=== PATIENT | female | born 1955 | race Caucasian/White ===

== ENCOUNTER → 2017-06-07 | Outpatient (CLI) | payer BC, OTHER ==
[~2017-06-07] MED LIST: LEVO75TA3 PO; LEVO88TA21 PO; OMEP20CA5 PO; TYLE3 PO
[2017-06-07 13:53] LABS: AUTOMATED NEUTROPHIL # 4.1 TH/MM3 (1.8-7.7); BASOPHIL % 0.7 % (0.0-2.0); EOSINOPHIL # 0.1 TH/MM3 (0-0.4); EOSINOPHIL % 1.5 % (0.0-4.0); HEMATOCRIT 40.3 % (35.0-46.0); HEMOGLOBIN 13.8 GM/DL (11.6-15.3); LYMPH % 28.6 % (9.0-44.0); LYMPHOCYTE # 1.9 TH/MM3 (1.0-4.8); MEAN CELL VOLUME 88.7 FL (80.0-100.0); MEAN CORPUSCULAR HEMOGLOBIN 30.3 PG (27.0-34.0); MEAN CORPUSCULAR HGB CONC 34.2 % (32.0-36.0); MEAN PLATELET VOLUME 7.9 FL (7.0-11.0); MONOCYTE # 0.5 TH/MM3 (0-0.9); NEUT % 61.2 % (16.0-70.0); PLATELET COUNT 292 TH/MM3 (150-450); RED BLOOD COUNT 4.55 MIL/MM3 (4.00-5.30); RED CELL DISTRIBUTION WIDTH 13.5 % (11.6-17.2); WHITE BLOOD COUNT 6.7 TH/MM3 (4.0-11.0)
[2017-06-07 14:09] LABS: BILIRUBIN, URINE NEG (NEG); BLOOD, URINE NEG (NEG); GLUCOSE,URINE NEG (NEG); KETONE, URINE NEG (NEG); MUCUS URINE FEW /lpf (OCC); NITRITE,URINE NEG (NEG); SQUAMOUS EPITHELIAL CELL URINE 1 /hpf (0-5); URINE COLOR YELLOW (YELLW/STRAW); URINE LEUKOCYTE ESTERASE SMALL (NEG)
--- NOTE | 2017-06-08 22:12 | EKG ---
Date Performed: 06/07/2017 Time Performed: 13:26:12 PTAGE: 61 years EKG: Sinus bradycardia Poor R wave progression - probable normal variant Inferior and anterior T wave changes are nonspecific Low QRS voltages in precordial leads Borderline ECG NO PREVIOUS TRACING DOCTOR: Omer Hunter Interpretating Date/Time 06/08/2017 22:11:00
== END ==
LOC: CPRE 12:51
PROVIDERS: ATTEND Obstetrics & Gynecology
DX: Z01.812 Encounter for preprocedural laboratory examination (principal); Z01.810 Encounter for preprocedural cardiovascular examination; N95.0 Postmenopausal bleeding; N85.00 Endometrial hyperplasia, unspecified; N84.1 Polyp of cervix uteri
CPT/HCPCS: 36415; 81001; 85025; 93005

== ENCOUNTER → 2017-06-09 | Day surgery (SDC) | payer BC, OTHER ==
--- NOTE | 2017-06-08 11:24 | MH ---
cc: JESI SUE DATE OF ADMISSION 06/09/2017 ADMITTING DIAGNOSIS Postmenopausal bleeding. HISTORY OF PRESENT ILLNESS The patient is a 61-year-old white female, para 0. She had initially seen her primary doctor and nurse practitioner in November with atypical pelvic discomfort that resolved. She had a Pap smear in February and had some bleeding with the Pap smear. A vaginal ultrasound showed fibroids with endometrial thickening of 12 mm on 04/14/2017. She was referred to me on 04/28/2017 and is now admitted for surgical evaluation. PAST MEDICAL HISTORY PREVIOUS SURGERY 1. T&A age 30. 2. Laparoscopic cholecystectomy 1974. 3. Toe surgery 1991. MEDICATIONS Levothyroxine. ALLERGIES 1. PENICILLIN. 2. LEVAQUIN. TRANSFUSIONS None. OB HISTORY None. SOCIAL HISTORY She works for the [employer]. 27 years. Alcohol occasional. Tobacco none. Drugs none. FAMILY HISTORY Noncontributory. PHYSICAL EXAMINATION GENERAL: A well-nourished, well-developed white female. VITAL SIGNS: Stable. HEENT: Normal. CHEST: Clear. HEART: Regular rate. BREASTS: Symmetrical. ABDOMEN: Benign. PELVIC: Normal external genitalia and BUS. Vagina is normal. Cervix is normal with large polyps. Uterus is normal size and shape. Adnexa nonpalpable. ASSESSMENT Postmenopausal bleeding with polyps, fibroids and endometrial thickening. PLAN She is now admitted for polypectomy, hysteroscopy and D&C. While in the office I explained the procedures, the risks, benefits and complications including infection, injury, bleeding and possible need for additional procedures explained and accepted. The patient elected to proceed. MD HANNA Matthew/JOSE A /10:46 AM /10:55 AM
[~2017-06-09] VITALS: Ht 172.7 cm; Wt 82.2 kg
[~2017-06-09] MED LIST changes: +ACETAMINOPHEN 1000 MG/100 ML 100 ML IV SCH; +APREPITANT 40 MG CAP ONE; +CHLORHEXIDINE GLUCONATE 2 % 1 PACK (2 CLOTHS) TOPICAL PRN; +CLINDAMYCIN 600 MG/NS PREMIX 50 ML IV SCH; +DEXAMETHASONE SOD PHOS 4 MG/ML VIAL IV ONE; +DO NOT ADM ANY ANTICOAGULANT DRUGS PRN; +KETOROLAC TROMETHAMINE 30 MG/ML (IVP) VIAL IV PUSH ONE; +LACTATED RINGER'S 1000 ML IV PRN; -LEVO88TA21 PO; +LIDOCAINE HCL 1% PF 5 ML SYRINGE OTHER ONE; +METOCLOPRAMIDE HCL 10 MG/2 ML VIAL IV PRN; +METOPROLOL TARTRATE 25 MG TAB PO PRN; -OMEP20CA5 PO; +ONDANSETRON HCL 4 MG/2 ML VIAL IV PUSH ONE; +POVIDONE IODINE 5% (ANTISEPSIS KIT) 4 APPLICATIONS EACH NARE PRN; +PROPOFOL 200 MG/20 ML AMP IV ONE; +SODIUM CHLORID 0.9% 500 ML IV PRN; -TYLE3 PO
[2017-06-09 09:13] VITALS: BP 116/62; PULSE 59; RESP 16; TEMP 98.1; O2SAT 100
--- NOTE | 2017-06-09 11:30 | MP ---
cc: JESI SUE DATE OF SURGERY: 06/09/2017 PREOPERATIVE DIAGNOSIS Postmenopausal bleeding, cervical polyps, uterine fibroids. POSTOPERATIVE DIAGNOSIS Postmenopausal bleeding, cervical polyps, uterine fibroids, endometrial polyps. PROCEDURE Hysteroscopy, D&C. ANESTHESIA General LMA. ESTIMATED BLOOD LOSS About 20 ccs. FLUIDS Half liter crystalloid. OBJECTIVE FINDINGS Following induction of adequate general LMA anesthesia, the patient was prepped and draped supine on the operating table in the dorsal lithotomy position in sterile fashion with the bladder being drained via in and out catheterization. Exam under anesthesia revealed a 10 week size uterus anterior, no adnexal masses, vagina was stenotic. The cervix was exposed with handheld retractors and grasped anteriorly with a single-tooth tenaculum. Two cervical polyps about 1 cm each were removed with ring forceps for permanent study. The cervix and uterus sounded to 8 cm. Cervix was dilated with #18 Hanks dilator. The hysteroscope was passed and revealed a normal endocervix with multiple uterine polyps. Scope was now withdrawn. Endometrial curetting obtained with a small sharp curette and polyp forceps was passed to pickup and remove multiple polyps. The scope was passed again to ensure the cavity was clean. Cervical tenaculum sites were sutured with 3-0 Chromic with good hemostasis. All instruments were removed. All counts were correct. The patient's legs were taken down from the stirrups. She was awakened and taken to the recovery room in good condition. MD HANNA Matthew/PATRIC /7:52 AM /11:07 AM
== END | disposition home or self-care (01) ==
LOC: HSDC 05:27
PROVIDERS: ATTEND Obstetrics & Gynecology
DX: N95.0 Postmenopausal bleeding (principal); N84.1 Polyp of cervix uteri; N84.0 Polyp of corpus uteri; D25.9 Leiomyoma of uterus, unspecified
CPT/HCPCS: 00952; 58558; 88305; J0131; J1100; J1885; J2405; J3010; J7120; J8501